=== PATIENT | male | born 1960 | race Caucasian/White ===

== ENCOUNTER 2020-03-31 13:32 | Outpatient (CLI) | payer BC, SELFPAY ==
--- NOTE | ~2020-03-31 | MR_ITS ---
EXAMINATION: MR hip RT wo con DATE: 03/31/2020 15:00 INDICATION: Right hip pain. TECHNIQUE: Magnetic resonance imaging (MRI) of the right hip was performed without intravenous contra st. Sequences included axial and coronal PD-weighted FS FSE and axial T1-weighted FSE of the pelvis. Sequences of the hip included 2D FIESTA, T1-weighted fast GRE, and axial, coronal, and sagittal PD-we ighted FS FSE. COMPARISON: None FINDINGS: Bones/cartilage: There is 6 degrees levocurvature of lumbar spine. There is moderate lumbar spondylosis. The femoral h ead/neck morphologies are normal. There is moderate right hip osteoarthritis including deep partial-t hickness cartilage loss superiorly with subchondral bone marrow edema in femoral head and acetabulum and subchondral cysts in the acetabulum. The posterosuperior aspect of the right femoral head demonst rates an insufficiency fracture characterized by subchondral sclerosis and bone marrow edema best see n on the sagittal views without cortical depression. There is mild left hip osteoarthritis. Labrum: There is a tear of the right acetabular labrum. Fluid: There is a right hip joint effusion. Soft tissues: The gluteal tendons, iliopsoas tendons, and hamstring tendon origins are normal. IMPRESSION: 1. Subchondral insufficiency fracture of right femoral head. 2. Moderate right hip osteoarthritis and mild left hip osteoarthritis. 3. Right hip joint effusion. Reviewed, dictated and finalized at location E.
== END 2020-03-31 13:33 | disposition home or self-care (01) ==
PROVIDERS: PCP Family Medicine; Visit Provider Family Medicine
DX: M25.551 Pain in right hip (principal); S72.091A Other fracture of head and neck of right femur, initial encounter for closed fracture; M16.0 Bilateral primary osteoarthritis of hip; M25.451 Effusion, right hip
CPT/HCPCS: 73721

== ENCOUNTER 2020-04-19 12:06 | Outpatient (CLI) | payer BC, SELFPAY ==
--- NOTE | ~2020-04-19 | XR_ITS ---
EXAMINATION: XR lg joint inject/asp w image DATE: 04/19/2020 13:21 INDICATION: Unilateral primary osteoarthritis of the right hip. TECHNIQUE: A time-out was performed to verify the patient's name, date of , and procedure to b e performed. The procedure including the risks, benefits, and alternatives was discussed with the pat ient. Risks discussed included bleeding and infection. The patient understood the risks and agreed to proceed. The skin overlying the right hip joint was prepped and draped in usual sterile fashion. A nesthetic was administered with 1% lidocaine subcutaneously. A 22 G needle was advanced under fluoro scopic guidance into the joint. Injection of 0.6 mL of Omnipaque 240 confirmed intra-articular posit ion of the needle. Subsequently, injectate consisting of 7 mL of a 5:2 mixture of 1% lidocaine: 10 m g/mL Kenalog for a total dosage 20 mg Kenalog was instilled. Washout of contrast was seen confirming intra-articular administration. The needle was removed and the entry site was cleaned and dressed. T here were no immediate complications. Fluoroscopy exposure time was 0.1 minutes. The total number of images was 2. FINDINGS: Real-time fluoroscopy demonstrates the needle in the right hip joint. Patient's pain prior to procedure:3/10. Patient's pain following the procedure: 0/10. IMPRESSION: 1. Right hip joint injection of local anesthetic and steroid with decrease in the patient's presentin g pain. Reviewed, dictated and finalized at location A. IMPRESSION: 1. Right hip joint injection of local anesthetic and steroid with decrease in t he patient's presenting pain.
== END 2020-04-19 12:07 | disposition home or self-care (01) ==
PROVIDERS: PCP Family Medicine; Visit Provider Orthopaedic Surgery
DX: M16.11 Unilateral primary osteoarthritis, right hip (principal)
CPT/HCPCS: 20610; 77002; J3301; Q9966